=== PATIENT | male | born 1955 | race Caucasian/White ===

== ENCOUNTER 2020-01-29 11:05 | Emergency (ER) | payer BC, SELFPAY ==
[2020-01-29 11:20] VITALS: BP 113/85; PULSE 69; RESP 20; TEMP 36.7; O2SAT 100
--- NOTE | 2020-01-29 11:28 | ED.EAR ---
HPI - Ear Problem General Chief complaint: Ear Stated complaint: R/ear pain Time Seen by Provider: 01/29/20 11:08 Source: patient Mode of arrival: ambulatory Limitations: no limitations History of Present Illness HPI Narrative: 64-year-old male presents to urgent care with complaints of decreased hearing and clogged sensation to his right ear for the past week. Patient reports that symptoms worsen this morning. Patient denies fever, bites, chills, nausea vomiting, diarrhea, ear drainage or ear pain. MD Complaint: decreased hearing and other (clogged sensation) Location: right ear Severity: mild Exacerbating factors: nothing Discharge from ear: Reports no Related Data Allergies Allergy/AdvReac Type Severity Reaction Status Date / Time oxycodone Allergy Hallucinati Verified 01/29/20 11:19 ng Review of Systems Review of Systems: All systems reviewed & are unremarkable except as noted in HPI and below Constitutional: Constitutional: Denies chills, Denies fatigue, Denies fever(s) and Denies weakness ENT: Denies dysphagia, Denies dizziness, Denies epistaxis, Denies nasal congestion and Denies sore throat Comments: Right ear clogged and decreased hearing Respiratory: Respiratory: Denies cough, Denies dyspnea and Denies wheezing Gastrointestinal: Gastrointestinal: Denies abdominal pain, Denies diarrhea, Denies nausea and Denies vomiting Integumentary/Breasts: Skin/Breast: Denies rash Neurologic: Denies vertigo, Denies dizziness and Denies syncope [facility] Social History Social History (Updated 01/29/20 @ 11:30 by Meagan Riley, MARBIN) Smoking status: Never smoker Exam Const: General: healthy appearing, no acute distress and alert; No ill appearing Orientation/consciousness: patient oriented x3 and No confusion HENMT: Head: normal to inspection Ears: external ears normal and TM abnormal obstructed by cerumen on the right General nose exam: Normal nares present, no nasal discharge noted and no epistaxis Face and sinus: no sinus tenderness Mouth: No lip normal Throat: uvula midline Other: Left TM within normal range. Moderate cerumen impaction noted to right ear Eyes: Pupils: Equal, round and reactive pupils present Neck: Neck: normal visual inspection and no lymphadenopathy Resp: Effort & Inspection: normal respiratory effort and not labored Auscultation: clear to auscultation bilaterally Cardio: Rate: regular rate, not bradycardic and not tachycardic Rhythm: regular rhythm Heart sounds: no murmurs Skin: General skin exam: normal color Rashes: no rashes Neuro: General: moves all extremities and no meningeal signs Extrem: General: normal to inspection Psych: Appearance: grossly normal Mental Status: mental status grossly normal Affect: normal affect and Anxious affect present Attitude: cooperative Thought content: Yes Normal thought content present Course Vital Signs Vital signs: Vital Signs Temperature 36.7 C 01/29/20 11:20 Pulse Rate 69 01/29/20 11:20 Respiratory Rate 01/29/20 11:20 Blood Pressure 113/85 01/29/20 11:20 Pulse Oximetry 100 01/29/20 11:20 Temperature 36.7 C 01/29/20 11:20 Pulse Rate 01/29/20 11:20 Respiratory Rate 01/29/20 11:20 Blood Pressure 113/85 01/29/20 11:20 Pulse Oximetry 100 01/29/20 11:20 Procedures Ear Wax Removal Right Ear: Ear Wax Removal Date: 01/29/20 Ear Wax Removal Time: 11:37 Results: Re-examined: cerumen removed completely TM Examination: TM(s) intact, normal appearance Ear Canal Exam: other (mild erythema noted to right ear canal) Patient Tolerated Procedure: well Complications: no problems Medical Decision Making MDM Narrative Medical decision making narrative: Cerumen was removed using irrigation --please see procedure note. Patient agrees to use [id number] Debrox drops as needed. Patient agrees to follow-up with primary care provider if symptoms w
== END 2020-01-29 11:55 | disposition home or self-care (01) ==
PROVIDERS: Emergency Provider Nurse Practitioner Family; PCP Internal Medicine
DX: H61.21 Impacted cerumen, right ear (principal)
CPT/HCPCS: 69209; 99213; G0463

== ENCOUNTER 2024-08-29 15:24 | Emergency (ER) | payer MEDICARE, BC, SELFPAY ==
[2024-08-29] VITALS (7 sets, daily range): BP systolic 125–150; BP diastolic 77–95; PULSE 68; RESP 16–20; TEMP 36.1–36.8; O2SAT 96–100
--- NOTE | ~2024-08-29 | CT_ITS ---
EXAMINATION: CT abdomen pelvis w con DATE: 08/29/2024 19:45 INDICATION: Right lower quadrant abdominal pain. TECHNIQUE: Computed tomography (CT) of the abdomen and pelvis was performed with 100 mL Omnipaque 350 intravenous contrast. Automated exposure control and iterative reconstruction technique were employe d. The dose-length product was 583.33 mGy-cm. COMPARISON: None. FINDINGS: The visualized portions of the lung bases demonstrate mild atelectasis. There is a left pos terior diaphragmatic hernia containing fat. No pleural effusion. The heart size is normal. No pericar dial effusion. There is a 4 mm cyst in the liver. The gallbladder, spleen, pancreas, adrenal glands, and right kidney are normal. There is an 11 mm cyst in left kidney. There is a large volume of stool in the colon. The appendix is normal. There is dilated distal ileum with a large volume of stool. The prostate is mildly enlarged. There is a right inguinal hernia containing fat. The appendix is normal . There are no pathologically enlarged lymph nodes. There is no free intraperitoneal fluid. There is an umbilical hernia containing fat. There is severe lumbar spondylosis. There is mild thoracic spondy losis. There is mild chronic anterior wedging of T11 and T12 vertebral bodies. IMPRESSION: 1. Dilated distal ileum, likely adynamic ileus versus distal impaction. 2. Right inguinal hernia containing fat. 3. Umbilical hernia containing fat. Reviewed, dictated and finalized at location A. [facility]
--- OUTSIDE RECORDS SUMMARY | 2024-08-29 15:27 | XMS_ITS | Clinical Summary ---
Author Organization [facility] Address [facility] [place] [address] Care Team Providers Care Road Machinery Inspector Name Role Phone Gucci Nixon MD Primary Care Provider [phone] Gucci Nixon MD Unavailable [phone] Allergies Active Allergy Reactions Criticality Noted Date Comments Oxycodone Mental status changes High 02/17/2018 Confusion, Anxiety Medications acetaminophen (TYLENOL) 500 mg tabletIndication s:Pain Take 2 tablets (1,000 mg total) by mouth every 6 (six) hours as needed for pain Active tadalafiL (Cialis) 20 mg tabletIndication s:Erectile Dysfunction Take 1 tablet (20 mg total) by mouth daily as needed for erectile dysfunction 10 tablet 1 1 Active omeprazole (PriLOSEC) 20 mg capsule TAKE 1 CAPSULE(20 MG) BY MOUTH DAILY 90 capsule 4 Active scopolamine 1 mg over 3 days patch [address] 1 patch on the skin every third day as needed (nausea) 4 patch 2 4 Active Additional Information Patient not taking.Reported on 12/24/2023 rosuvastatin (CRESTOR) 10 mg tablet Take 1 tablet (10 mg total) by mouth daily 30 tablet 11 4 12/24/19 25 Active zolpidem (AMBIEN) 5 mg tabletIndication s:Sleep-Onset Insomnia Take 1 tablet (5 mg total) by mouth nightly as needed for sleep 30 tablet 2 4 12/25/19 25 Active etodolac (LODINE) 400 mg tablet TAKE 1 TABLET BY MOUTH DAILY 90 tablet 1 4 Active Active Problems Problem Noted Date Diagnosed Date Nail fungus 07/30/2023 Assessment & Plan (07/30/2023 1:06 PM PORCELAIN ENAMEL INSTALLER): Would advise continuing topical anti-fungal Return to Derm Inguinal hernia 03/29/2020 Overview (03/29/2020): Added automatically from request for surgery [id number] Disorder of rotator cuff 03/23/2020 Ganglion cyst 03/23/2020 Resolved Problems Problem Noted Date Diagnosed Date Resolved Date Encounter for screening colonoscopy 09/29/2020 07/30/2023 Overview (09/29/2020): Added automatically from request for surgery [id number] Sinusitis 03/23/2020 07/30/2023 Encounters Date Type Department Care Team Description 08/03/2024 1:00 PM PORCELAIN ENAMEL INSTALLER Office Visit [facility] [address] [place] [address] [address] [place] [id number] Ricardo Morales MD Basal cell carcinoma (BCC) of left oriental orthodox region (Primary Dx); Nail disorder; Lentigo; Seborrheic keratosis; History of nonmelanoma skin cancer from Last 3 Months Immunizations Immunization Administration Dates Next Due Influenza, Quadrivalent, Yessi l Culture-based MDCK, Preservative Free, Antibiotic Free, Intramuscular 03/22/2022 Influenza, Quadrivalent, Hig h Dose, Preservative Free, Intrr 04/20/2023 Influenza, Quadrivalent, Rec ombinant, Egg Free, Preservative Free, Intramuscular 04/07/2018 Influenza, Quadrivalent, Spl it, Preservative Free, Intramuscular 03/29/2020,04/06/2019,04/21/2015 Influenza, Trivalent, High D ose, Split, Preservative Free, Intramuscular 04/11/2024 Influenza, Trivalent, IM (MDV) 04/09/2021,2013,06/09/2013 Influenza, Trivalent, Preser vative Free, Intramuscular 06/10/2013 Maria R (J&J) SARS-CoV-2 Vaccination 09/09/2020 Moderna SARS-CoV-2 Monovalen t Vaccination (12+ YRS) 05/14/2021 Pneumococcal Conjugate Pcv20 09/26/2022 ZOSTER Recombinant 03/20/2019,01/17/2019, 019 Surgical History Surgery Date Site/Laterality Comments LUMBAR SPINE SURGERY ROTATOR CUFF REPAIR MOHS SURGERY COLONOSCOPY Medical History Medical History Date Comments Glaucoma Depression Anxiety GERD (gastroesophageal reflux disease) Family History Medical History Relation Name Comments Cancer Mother Anesthesia problems Neg Hx Relation Name Status Comments Mother Social History Tobacco Use Types Packs/Day Years Used Date Smoking Tobacco: Former Cigarettes 0.5 14 1 980 - 1993 Smokeless Tobacco: Never Tobacco Cessation:Counseling Given: Not Answered Alcohol Use Standard Drinks/Week Comments Yes 10 (1 standard drink = 0.6 oz pu re alcohol) AUDIT-C Answer Date Recorded Q1: How often do you have a drink containing alc ohol? 2-3 times a week 02/16/2021 Q2: How many drinks containi ng alcohol do you have on a typical day when you are drinking? 1 or 2 02/16/2021 Q3: How often do you have si x or more drinks on one occasion? Never 02/16/2021 PHQ-2 Answer Date Recorded PHQ-2 Total Score (If total score is 3 or more points, staff should administer the PHQ-9) 0 12/17/2023 Sex and Gender Information Value Date Recorded Sex Assigned at Not on file Legal Sex Male 6:22 PM PORCELAIN ENAMEL INSTALLER Gender Identity Not on file Sexual Orientation Straight 06/23/2020 9: 19 PM PORCELAIN ENAMEL INSTALLER Occupation Industry Job Start Date Job End Date retired Not on file Not on file Not on file Obstetrics History Last Filed Vital Signs Vital Sign Reading Time Taken Comments Blood Pressure 123/66 12/24/2023 2:39 PM CDT Pulse 65 12/24/2023 2:39 PM CDT Temperature 36.5 C (97.7 F) 02/16/2021 8:33 AM CDT Respiratory Rate 17 02/16/2021 8:53 AM CDT Oxygen Saturation 98% 07/30/2023 12:47 PM PORCELAIN ENAMEL INSTALLER Inhaled Oxygen Concentration - - Weight 86.2 kg (190 lb) 12/24/2023 2:39 PM CDT Height 177.8 cm (5' 10 ) 12/24/2023 2:39 PM CDT Body Mass Index 27.26 12/24/2023 2:39 PM CDT Plan of Treatment Health Maintenance Due Date Last Done Comments DTaP/Tdap/Td Vaccine (1 - Tdap) 1968 Abdominal Aortic Aneurysm (A AA) Screen 2022 09/03/2018 Covid-19 Vaccine (6 - 2023-2 5 season) 2024 03/23/2024, 04/01/2023, 03/27/2022, Additional history exists Depression Screening 12/23/2024 12/24/2023 Fall Risk Assessment 12/23/2024 12/24/2023, 02/17/20 Well Visit 65+ 12/23/2024 12/24/2023, 09/13/2020 Prostate Cancer Screening-PSA 12/23/2025, 09/19/2021, 09/13/2020 Colon Cancer Screening-Colonoscopy 02/16/2031 02/16/2021 Zoster Vaccine Completed 03/20/2019, 01/05, 01/14/2019 Colon Cancer Screening-CT Colonography Discontinued 02/16/2021 Colon Cancer Screening-DNA Stool Discontinued 02/17/20 Colon Cancer Screening-FIT Discontinued 02/16/2021 Colon Cancer Screening-Sigmoidoscopy Discontinued 02/16/2021 Pneumococcal vaccine 65+ Completed 09/26/2022, 10/2022 Hepatitis B Screening Completed 12/24/2023 Hepatitis C Screening Completed 12/24/2023 Influenza Vaccine Completed 04/11/2024, , 03/22/2022, Additional history exists Medical Devices Implanted Type Area Endoscopy Registered Nurse Device Identifier Shelf Expiration Date Model / Serial / Lot [employer]/C R Bard [id number] Bard 3dmax 6.2x4.1in Monofilament Seal Edge Lightweight Pore Knit Latex Free - Sn/A - [id number] Implanted:Qty: 1 on 04/27/2020 by Alethea Isabel MD at [facility] Mesh Left: Other - see comments [employer] Bard 08/04/2024 [id number] / N/A / Description:Left inguinal Procedures Procedure Name Priority Date/Time Associated Diagnosis Comments HEPATITIS C ANTIBODY Routine 12/24/2023 3:35 PM CDT Mixed hyperlipidemia Routine general medical examination at a health care facility Vitamin D deficiency Encounter for hepatitis C screening test for low risk patient Need for hepatitis B screening test PSA SCREEN Routine 12/24/2023 3:35 PM CDT Mixed hyperlipidemia Routine general medical examination at a [facility] care facility Vitamin D deficiency Encounter for hepatitis C screening test for low risk patient Need for hepatitis B screening test COLONOSCOPY 02/16/2021 8:05 AM CDT from Last 3 Months or Most Recently Relevant to Health Maintenance Results * PSA screen (12/24/2023 3:35 PM CDT) Pathologist [facility] PSA 3.0 0.0 - 4.0 ng/mL [facility] - 01 Comment: [place] ECLIA methodology. According to the [employer], Serum PSA should decrease and remain at undetectable levels after radical prostatectomy. The AUA defines biochemical recurrence as an initial PSA value 0.2 ng/mL or greater followed by a subsequent confirmatory PSA value 0.2 ng/mL or greater. Values obtained with different assay methods or kits cannot be used interchangeably. Results cannot be interpreted as absolute evidence of the presence or absence of malignant disease. Blood 12/24/2023 3:35 PM CDT 12/24/2023 Narrative [facility] - 12/25/2023 12:11 PM CDT Performed at: [address] [place] [id number] [place]: Ming Julian PhD, Phone: [phone] us Gucci Nixon MD LAB BLOOD ORDERABLES Final [facility] - 01 * Hepatitis C antibody Blood (12/24/2023 3:35 PM CDT) Pathologist [facility] Hep C Ab Non Reactive Non Reactive [facility] - 01 Comment: HCV antibody alone does not differentiate between previously resolved infection and active infection. Equivocal and Reactive HCV antibody results should be followed up with an HCV RNA test to support the diagnosis of active HCV infection. Blood 12/24/2023 3:35 PM CDT 12/24/2023 Narrative [facility] - 12/25/2023 12:11 PM CDT Performed at: - [address] [id number] [place]: Ming Julian PhD, Phone: [phone] us Gucci Nixon MD LAB MICROBIOLOGY - GENERAL OR DERABLES Final Result [facility] - 01 * COLONOSCOPY (02/16/2021 8:05 AM CDT) Anatomical Region Laterality Modality Other Narrative Procedure Note Latonya Gaona MD - 02/16/2021 8:05 AM CDT [facility] Patient Name: Robb Hughes Procedure Date: 02/16/2021 8:05 AM Date of : 1955 Admit Type: Outpatient Age: 65 Gender: Male Attending MD: Latonya Gaona M.D. Room: [facility] ENDOSCOPY ROOM 8 Note Status: Finalized Procedure: Colonoscopy Indications: Screening in patient at increased risk: Colorectal cancer in mother 60 or older, High risk coloncancer surveillance: Personal history of colonic polyps,Last colonoscopy 5 years ago Referring MD: Gucci Nixon M.D. Providers: Latonya Gaona M.D. Medicines: Monitored Anesthesia Care Complications: No immediate complications. Estimated Blood Loss: Minimal. Procedure: Pre-Anesthesia Assessment: - Monitored anesthesia care under the supervisionof a MANAGER OF TAX was determined to be medically necessary forthis procedure based on review of the patient's medical history, medications, and prior anesthesiahistory. - Immediately prior to administration ofmedications, the patient was re-assessed for adequacy to receive sedatives. - The risks and benefits of the procedure and the sedation options and risks were discussed with the patient. All questions were answered and informed consent was obtained. The benefits, risks and alternatives of theprocedure and sedation were discussed and informed consentwas obtained. All questions were answered. Please referto the signed informed consent document in the medical record. The scope was passed under direct vision.The [id number] endoscope was introduced through the anus and advanced to the cecum, identified by appendiceal orifice and ileocecal valve. The colonoscopy was performed without difficulty. The patient tolerated the procedure well. The bowel preparation used was GoLYTELY via split dose instruction. The quality of the bowel preparationwas excellent. Bowel prep was administered using asplit dose. Findings: A 3 mm polyp was found in the ascending colon. The polyp was sessile. The polyp was removed with a jumbo cold forceps. Resection andretrieval were complete. Non-bleeding internal hemorrhoids were found during retroflexion. The hemorrhoids were mild. The exam was otherwise without abnormality. Impression: - One 3 mm polyp in the ascending colon, removedwith a jumbo cold forceps. Resected and retrieved. - Non-bleeding internal hemorrhoids. - The examination was otherwise normal. Recommendation: - Discharge patient to home (ambulatory). - Repeat colonoscopy in 5 years for surveillance. - Return to referring physician. - A polyp or polyps were removed during your colonoscopy today. After the pathology result ofthe polyp(s) is reviewed, the doctor who performedyour colonoscopy will recommend follow-up colonoscopy to you based on current guidelines by gastroenterology societies: - If only small hyperplastic polyps from the rectumor sigmoid were removed, repeat the colonoscopy in 10 years. - If 1 or 2 polyps less than 1 cm in size are adenomas, repeat the colonoscopy in 5 years. - If 3 or more polyps are adenomas, repeat the colonoscopy in 3 years. - If there are 10 or more adenomas, repeat the colonoscopy in 1 year. - If any polyp is 10 mm or greater in size, has villous histology or high grade dysplasia,repeat the colonoscopy in 3 years. - If a polyp greater than 2 cm was removed with a piecemeal technique, repeat the colonoscopy in 6 months to be certain that there is no residualpolyp. - Sessile serrated polyps are treated like adenomas for surveillance purposes. Electronically signed by Latonya Gaona MD Latonya Gaona M.D. 02/16/2021 8:28:58 AM . Number of Addenda: 0 Note Initiated On: 02/16/2021 8:05 AM Recognized by the [employer] for promoting quality in endoscopy Latonya Gaona MD ENDOSCOPY PROCEDURES [place] Result from Last 3 Months or Most Recently Relevant to Health Maintenance Insurance iCrossing [facility] FEDERAL MEDICARE MEDICARE [facility] FEDERAL MEDICARE [facility] Advance Directives For more information, please contact: [phone] * Full Code (Latest Code Status on File) Date Activated Date Inactivated Comments 02/16/2021 7:50 AM 02/16/2021 1:12 PM * Full Code Date Activated Date Inactivated Comments 02/16/2021 7:23 AM 02/16/2021 7:50 AM * Full Code Date Activated Date Inactivated Comments 04/27/2020 10:06 AM 04/27/2020 3:[address] Machinery Inspector Relationship Specialty Start Date End Date Gucci Nixon MD [address] [employer] [address] [address] PCP - General 11/18/17 Gucci Nixon MD [address] [employer] [facility] [address] [place] [address] Referring Physician Internal Medicine 10/30/18
--- OUTSIDE RECORDS SUMMARY | 2024-08-29 15:27 | XMS_ITS | Continuity of Care Document ---
Author Organization [facility] Address [address] [place] [address] [place] [address] Phone Care Team Providers Care Furniture Rental Consultant Name Role Phone Donavan Camara DO Unavailable Unavailable Advance Directives Directive Yes / No Effective Date File Name No Information Encounters Encounter Description Practice Location Reason(s) For Visit Diagnoses Date Provider Providers Copied on Encounter [facility], [address], [place], [place], [id number], [place] tel:[phone] [facility] [place][note 2] No Information Jax Galvez. [address] [facility], [place], [address], [place]. tel:[phone] Referring Provider: Yang Mary, [address] [facility] [address], [place], [address]. tel:[phone] Family History Family Member Type Diagnosis Age At Onset No Information Payers Payer name Insurance type Covered libertarian ID Authoriza tion(s) No Information Social History Type Description Quantity Date Captured Comments Sex Male Smoking Status No Information Chief Complaint And Reason For Visit No Information Reason For Referral Reason For Referral No Information History Of Present Illness Encounter Date Complaint History Of Prese nt Illness No Information Functional Status Date Functional Assessmen t No Information Instructions Date Instruction Additional Infor mation No Information Assessments Type Assessment Date No Information Patient Care Teams Name Effective Dates (start - stop) Status Members No Information
--- OUTSIDE RECORDS SUMMARY | 2024-08-29 15:27 | XMS_ITS | Patient Health Record ---
Author Organization [facility]ess[facility] Billing Info Address [address] [place] [address] Support Name Relationship Address Phone Robb Hughes Guarantor Unknown Allergies Allergen (clinical drug ingredient) Drug/Non Drug Allergy documented on EMR Reaction Allergy Type Onset Date Status oxycodone Oxycodone HCl Unknown Drug Allergy Act vladimir Reason For Referral No Information Medications Medication SIG (Take, Route, Frequency, Duration) Notes Start Date End Date Status Azelastine HCl 0.1 % 1 puff in each nost ril Nasally Twice a day for 5 day(s) Active DiphenhydrAMINE HCl 50 MG 1 capsule as n eeded Orally every 8 hrs for 7 day(s) 08/07/2018 Active Tessalon Perles 100 MG 1 capsule as need ed Orally Three times a day for 7 day(s) 08/07/2018 Active Pseudoephedrine HCl 30 MG 1 tablet as ne eded Orally Q8H for 3 day(s) 08/07/2018 Active Xyzal Active Benadryl Active MethylPREDNISolone 4 MG as directed Orally Active Fluticasone Propionate 0.05 % 1 applicat ion to affected area Externally Once a day for 14 day(s) Active Social History Tobacco Status: Question Answer Notes Patient is a non tobacco user Plan Of Treatment No Information Insurance Providers Payer Name Payer Address Payer Phone Subscriber Number Group Number Insured Name Patient Relationship to Insured Coverage Start Date Coverage End Date [facility] FEDERAL CLAIMS [address] [place] [id number] Robb Lopez Self - patient is the insured 9 Medical (General) History Surgical History Surgery Date(Month/Year) shoulder surgery, R 2013 cholecystectomy 1999 Child [id number]
--- OUTSIDE RECORDS SUMMARY | 2024-08-29 15:27 | XMS_ITS | Data Portability ---
Author Organization [place] - [facility] [email or web address], Main Office Address [address] [place] [address] Care Team Providers Care Linen Grader Name Role Phone USHA VERA Primary Care Provider USHA VERA Referring Provider [phone] Assessment Encounter Date Assessment Date Assessment LastModified by Organization Details LastModified Time 01/03/2023 01/03/2023 HPI: 67-year-old male came in today for evaluation of his right long trigger finger. Finger has been catching for about 3 or 4 months. He has not recall any injury or trauma that started this. He also has pain and points at the A1 thomas of the long finger where he feels quite a bit of soreness in the hand. Physical exam: Patient does have full extension long finger. He has active triggering with full flexion which is painful. He has moderate tenderness over the A1 thomas of the long finger. He has Dupuytren's contractures of the 4th as well as the 3rd flexor tendons noted. There is no flexion contracture of the ring finger. No numbness or tingling in the hand. 2+ radial pulse. After ChloraPrep used on skin 5 mg Kenalog and 1 cc of 0.5% ropivacaine was injected into the A1 thomas right long finger. Afterwards patient noted good relief of symptoms. He is able to trigger the finger with minimal discomfort. Impression: 67-year-old male who has a right long trigger finger. I discussed the etiology of this. I discussed treatment options including cortisone injections, typically these are limited to more than 2 could cause softening and tendon tendon rupture. I talked about surgical procedure as well with him so he is aware of it. Hopefully the injection will help him today. He will call if it does not improve his symptoms otherwise we will see him back as needed. 20 minutes was spent in treatment patient more than of this in [id number] conversation Not available 01/03/2023 13:31:54 06/06/2023 06/06/2023 HPI: Patient returns. His right long trigger finger has recurred. He had a cortisone injection 01/03 this year. shot helped up until 1 month ago when his triggering recurred. He does not wish to have another injection and wishes to proceed with surgery at this point. Physical exam: Patient has full extension of the right long finger. He has active triggering with range of motion. Moderate tenderness over the A1 thomas. A little swelling in the finger wrist or hands. 2+ radial pulse. No numbness or tingling in the fingers. Impression: Patient has a right long trigger finger. At this point he would like to proceed with surgery. Surgical procedure as well as the risks and complications were discussed including infection and nerve injury. We will set this up in the near future. Not available 06/06/2023 09:13:54 07/04/2023 07/04/2023 HPI: Patient returns. He is now 15 days out from his right long finger A1 thomas release. Overall he is doing fine. Physical exam: Patient's incision is well healed. Stitches removed. He has full extension of the finger and full flexion. He has no triggering. Mild tenderness over the incision. Impression: Patient doing very well 15 days out from right long finger A1 thomas release. This point he can increase activities as tolerated. See him back as needed. Not available 07/04/2023 11:10:59 Plan of Treatment Reminders Order Date Submit Date Provider Last Modified By Organization Details Last Modified Time Details Appointments None record ed. Lab None record ed. Referral None record ed. Procedures None record ed. Surgeries None record ed. Imaging XR, hand 023 01/04/20 23 [email or web address], [facility], [place], [address], 3 12:20:02 Medication Orders None record ed. Patient TargetsNo targets recorded. Patient InstructionsNo instructions recorded. Reason for Referral None Reported. Results Created Date Observation Date Name Description Value Unit Range Abnormal Flag Note LastModifiedBy Organization Detail LastModifiedTime 01/04/20 23 XR, hand No observ ation record ed. [facility] [address], [place], [address], 01/03/2023 13:29:46 Result Notes None recorded. Problems Name Problem SNOMED Code Status Onset Date Resolution Date Notes Provider Name and Address Organization Details Recorded Time Shoulder joint pain 511642291 Active Not Available [facility] 3 06:13:59 Sinusitis 38630518 Active Not Available [facility] 3 06:13:59 Disorder of rotator cuff 578707033 Active Not Available [facility] 3 06:13:59 Epidermoid cyst of skin 139512633 Active Not Available [facility] 3 06:13:59 Shoulder pain 56630331 Active Not Available [facility] 3 06:13:59 Pain of left hand 8408681027529 03 Active 2022 Madie Larry RMA null, [place] [facility] 3 11:34:38 Pain in right hand 4203843616227 09 Active 2022 Madie Larry RMA null, [place] [facility] 3 08:58:40 Trigger finger of right hand 1572485781322 9101 Active 2022 Madie Larry RMA null, [place] [facility] 3 10:59:03 Problem Notes None recorded. Procedures Surgical History Date Name Laterality Status Provider Name and Address Organization Details Recorded Time Shoulder completed Madie Larry, RMA [place] [facility] 01/03/2023 11:33:52 Imaging Results Imaging Date Name Status LastModified by Organiz ation Details LastModified Time 01/03/2023 XR, hand completed [facility] [address], [place], [address], 01/03/2023 13:29:46 Procedure Notes None recorded. Medical Equipment None Reported. Allergies Allergen ID Allergen Name Allergen Category Reaction Reaction Severity Criticality Documentation Date Start Date Code Code System Note Provider Name and Address Organization Details Recorded Time 19464 prochlorp erazine medicatio n Not available Not available Not available 09/05/2022 8704 RxNorm Not Available [facility] 3 06:18:39 48239 oxycodone medicatio n Not available Not available Not available 09/05/2022 7804 RxNorm Not Available [facility] 3 06:18:39 Medications Name Sig Start Date Stop Date Status Note LastModified by Organization Details LastModified Time cyclobenzap rine 10 mg tablet 01/01 completed Not Available Not Available Not Available amoxicillin 500 mg capsule Take 1 capsule 3 times a day by oral route for 10 days. active Not Available Not Available No t Available prednisone 10 mg tablet Take by oral route. active Not Available Not Available No t Available paroxetine 10 mg tablet active Not Available Not Available Not Available cefuroxime axetil 250 mg tablet 01/01 completed Not Available Not Available Not Available tizanidine 2 mg tablet 01/01 completed Not Available Not Available Not Available etodolac 200 mg capsule active Not Available Not Available Not Available trazodone 50 mg tablet active Not Available Not Available Not Available azithromyci n 250 mg tablet TAKE 2 TABLETS (500 MG) BY ORAL ROUTE ONCE DAILY FOR 1 DAY THEN 1 TABLET (250 MG) BY ORAL ROUTE ONCE DAILY FOR 4 DAYS 01/01 completed Not Available Not Available Not Available fluconazole 150 mg tablet 01/01 completed Not Available Not Available Not Available Doc-Q-Lace 100 mg capsule TK ONE C PO BID active Not Available Not Available No t Available clobetasol 0.05 % topical cream APPLY TO THUMB TWICE DAILY 07/04 completed Not Available Not Available Not Available acetaminoph en 300 mg-codeine 30 mg tablet active Not Available Not Available Not Available omeprazole 40 mg capsule,del ayed release Take 1 capsule every day by oral route for 30 days. active Not Available Not Available No t Available tramadol 50 mg tablet TAKE 1 TABLET BY MOUTH EVERY 4 HOURS NEEDED 07/04 completed Not Available Not Available Not Available acyclovir 800 mg tablet active Not Available Not Available Not Available ciclopirox 8 % topical solution APPLY OVER NAIL AND SURROUNDI NG SKINDAILY OVER PREVIOUS COAT FOR 7 DAYS. REMOVE WITH ALCOHOL AND CONTINUE CYCLE 07/04 completed Not Available Not Available Not Available oxycodone-a cetaminophe n 5 mg-325 mg tablet active Not Available Not Available No t Available triamcinolo ne acetonide 0.025 % topical cream 01/01 completed Not Available Not Available Not Available Oxistat 1 % lotion APPLY TO THE AFFECTED AND SURROUNDI NG AREAS OF SKIN TOPICALLY ONCE DAILY 01/01 completed Not Available Not Available Not Available benzonatate 100 mg capsule 01/01 completed Not Available Not Available Not Available cephalexin 500 mg capsule TAKE 1 CAPSULE BY MOUTH FOUR TIMES DAILY 07/04 completed Not Available Not Available Not Available tacrolimus 0.1 % topical ointment APPLY TO GROIN TWICE DAILY 07/04 completed Not Available Not Available Not Available nystatin 100,000 unit/gram topical cream APPLY TO THE AFFECTED AREA(S) BY TOPICAL ROUTE 2 TIMES PER DAY 01/01 completed Not Available Not Available Not Available omeprazole 20 mg capsule,del ayed release 07/04 completed Not Available Not Available Not Available etodolac 400 mg tablet TAKE 1 TABLET BY MOUTH DAILY 07/04 completed Not Available Not Available Not Available montelukast 10 mg tablet Take 1 tablet every day by oral route. active Not Available Not Available No t Available zolpidem 5 mg tablet 07/04 completed Not Available Not Available Not Available Transderm-S copying machine repairer 1 mg over 3 days transdermal patch 01/01 completed Not Available Not Available Not Available azelastine 137 mcg (0.1 %) nasal spray 01/01 completed Not Available Not Available Not Available methylpredn isolone 4 mg tablets in a dose pack 01/01 completed Not Available Not Available Not Available fluticasone propionate 50 mcg/actuati on nasal spray,suspe nsion Inhale 2 sprays every day by intranasa l route. 01/01 completed Not Available Not Available Not Available Cialis 20 mg tablet active Not Available Not Available No t Available Suprep Bowel Prep Kit 17.5 gram-3.13 gram-1.6 gram oral solution 05/06 completed Not Available Not Available Not Available Fluzone Quad 2015-17(PF) 60 mcg(15 mcgx4)/0.5 mL intramuscul ar syringe DIRE 01/01 completed Not Available Not Available Not Available Fluzone Quad (PF) 60 mcg(15 mcgx4)/0.5 mL intramuscul ar syringe 01/01 completed Not Available Not Available Not Available Shingrix (PF) 50 mcg/0.5 mL intramuscul ar suspension, kit 01/01 completed Not Available Not Available Not Available Flublok Quad (PF) 180 mcg (45 mcg x 4)/0.5 mL IM syringe 01/01 completed Not Available Not Available Not Available Fluzone Quad (PF) 60 mcg (15 mcg x 4)/0.5 mL IM syringe IMMUNIZAT ION 01/01 completed Not Available Not Available Not Available Vitals Date Recorded Body height Body mass index (BMI) Body weight Provider Name and Address Organization Details Last Updated DateTime 01/03/2023 172.72 cm 28.7 kg/m2 60790.96 g Madie Larry [facility] [email or web address] 01/03/2023 12:23:49 Date Recorded Body height Provider Name an d Address Organization Details Last Updated DateTime 06/06/2023 172.72 cm Madie Larry [place] [email or web address] 06/06/2023 08:57:54 Date Recorded Body height Provider Name an d Address Organization Details Last Updated DateTime 07/04/2023 172.72 cm Madie Larry [facility] [email or web address] 07/04/2023 10:56:51 Social History Question Answer Notes LastModified by Organizat ion Details LastModified Time What Is Your Occupation? Retired [id number] Information not available 09/05/2022 Sex: Unknown Functional Status None recorded. Mental Status None recorded. Family History Nothing Reported. Medical History No medical history recorded. Immunizations Vaccine Type Date Status Note Provider Nam e and Address Organization Details Recorded Time Influenza, split virus, trivalent, preservative 3 completed Not Available [facility] 09/05/2022 06:18:24 Influenza, split virus, trivalent, preservative 4 completed Not Available [facility] 09/05/2022 06:18:24 Influenza, split virus, quadrivalent, PF 5 completed Not Available [facility] 09/05/2022 06:18:24 Influenza, split virus, trivalent, PF 3 completed Not Available [facility] 09/05/2022 06:18:24 Past Encounters Encounter ID Performer Location Encounter Start Date Encounter Closed Date Diagnosis/Indication Diagnosis SNOMED-CT Code Diagnosis ICD10 Code Diagnosis Note [id number] ROSA Avalos [facility] [address] [address] 01/03/2023 11:11:54 01/03/2023 14:08:14 Pain of left hand 5736523449 96109 M79.610 [id number] ROSA Avalos [facility] [address] [address] 06/06/2023 08:55:23 06/06/2023 09:17:33 Pain in right hand 8169005092 16605 M79.847 [id number] ROSA Avalos [facility] [address] [address] 07/04/2023 10:53:38 07/04/2023 11:49:34 Trigger finger of right hand 7920467239 6503179 M65.331 Health Concerns Section Related Observation LastModified by Organization Detai ls LastModified Time None Recorded Concern Status LastModified by Organization Details LastModified Time None Recorded Advance Directives Directive None Recorded Payers Encounter Date Sequence Insurance Name Policy Number Policy Hung Covered Member ID Hung Member ID Guarantor Name 01/03/2023 2 [place] 111 Robb Hughes [id number] Robb Hughes 01/03/2023 1 [place] Robb Hughes [id number] Robb Hughes 06/06/2023 2 [place] 111 Robb Hughes [id number] Robb Hughes 06/06/2023 1 [place] Robb Hughes [id number] 1 Robb Hughes 07/04/2023 2 [place] 111 Robb Hughes [id number] Robb Hughes 07/04/2023 1 [place] Robb Hughes [id number] 1 Robb Hughes
--- OUTSIDE RECORDS SUMMARY | 2024-08-29 15:27 | XMS_ITS | Referral Summary ---
Author Organization [facility] Address [facility] [place] [address] Care Team Providers Care Internal Consultant Name Role Phone Gucci Nixon MD Primary Care Provider [phone] Gucci Nixon MD Unavailable [phone] Encounters Date Type Department Care Team Description 08/03/2024 1:00 PM LEAD FRONT END DEVELOPER Office Visit [facility] Dermatology [address] [place] [address] [address] [place] [address] Ricardo Morales MD Basal cell carcinoma (BCC) of left gnosticism region (Primary Dx); Nail disorder; Lentigo; Seborrheic keratosis; History of nonmelanoma skin cancer from Last 3 Months Allergies Active Allergy Reactions Criticality Noted Date [...] 07/30/2023 Assessment & Plan (07/30/2023 1:06 PM LEAD FRONT END DEVELOPER): Would advise continuing topical anti-fungal Return to Derm Inguinal hernia 03/29/2020 Overview (03/29/2020): Added automatically from request for surgery [id number] Disorder of rotator cuff 03/23/2020 Ganglion cyst 03/23/2020 Resolved Problems Problem Noted Date Diagnosed Date Resolved Date Encounter for screening colonoscopy 09/29/2020 07/30/2023 Overview (09/29/2020): Added automatically from request for surgery [id number] Sinusitis 03/23/2020 07/30/2023 Immunizations Immunization Administration Dates Next Due Influenza, [...] Conjugate Pcv20 09/26/2022 ZOSTER Recombinant 03/20/2019,01/17/2019, 019 Social History Tobacco Use Types Packs/Day Years [...] on file Legal Sex Male 6:22 PM LEAD FRONT END DEVELOPER Gender Identity Not on file Sexual Orientation Straight 06/23/2020 9: 19 PM LEAD FRONT END DEVELOPER Occupation Industry Job Start Date Job End Date retired Not on file Not on file Not on file Last Filed Vital Signs Vital Sign Reading Time Taken Comments Blood Pressure 123/66 12/24/2023 2:39 PM CDT Pulse 65 12/24/2023 2:39 PM CDT Temperature 36.5 C (97.7 F) 02/16/2021 8:33 AM CDT Respiratory Rate 17 02/16/2021 8:53 AM CDT Oxygen Saturation 98% 07/30/2023 12:47 PM LEAD FRONT END DEVELOPER Inhaled Oxygen Concentration - - Weight 86.2 kg (190 lb) 12/24/2023 2:39 PM CDT Height 177.8 cm (5' 10 ) 12/24/2023 2:39 PM CDT Body Mass Index 27.26 12/24/2023 2:39 PM CDT Plan of Treatment Not on file Medical Devices Implanted Type Area Inventory Taker Device Identifier Shelf Expiration Date Model / Serial / Lot [employer]/C R Bard [id number] Bard 3dmax 6.2x4.1in Monofilament Seal Edge Lightweight Pore Knit Latex Free - Sn/A - [id number] Implanted:Qty: 1 on 04/27/2020 by Alethea Isabel MD at [facility] Medicine Mesh Left: Other - see comments [employer] 08/04/2024 [id number] / N/A / Description:Left inguinal Procedures Procedure [...] hyperlipidemia Routine general medical examination at a [facility] care facility Vitamin D deficiency Encounter for hepatitis C screening test for low risk patient Need for hepatitis B screening test COLONOSCOPY 02/16/2021 8:05 AM CDT from Last 3 Months or Most Recently Relevant to Health Maintenance Results * PSA screen (12/24/2023 3:35 PM CDT) PSA 3.0 0.0 - 4.0 ng/mL [facility] - 01 Comment: [place] ECLIA methodology. According to the [employer] [employer], Serum PSA should decrease and [...] - 12/25/2023 12:11 PM CDT Performed at: [facility] [id number] Dowel Inspector: Ming Julian PhD, Phone: [phone] us Gucci Nixon MD LAB BLOOD ORDERABLES Final Re sult Performing Organization Address City/[facility] [employer] Phone Number [facility] - 01 * Hepatitis C antibody Blood (12/24/2023 3:35 PM CDT) Hep C Ab Non Reactive Non Reactive [facility] - 01 Comment: HCV antibody alone does not differentiate between previously resolved infection and active infection. Equivocal and Reactive HCV antibody results should be followed up with an HCV RNA test to support the diagnosis of active HCV infection. Blood 12/24/2023 3:35 PM CDT 12/24/2023 Narrative [facility] - 12/25/2023 12:11 PM CDT Performed at: [address] [place] [id number] Dowel Inspector: Ming Julian PhD, Phone: [phone] Gucci Nixon MD LAB MICROBIOLOGY - GENERAL OR DERABLES Final Result Performing Organization Address [facility] [employer] Phone Number [facility] - 01 * COLONOSCOPY (02/16/2021 8:05 AM CDT) Anatomical Region Laterality Modality Other Narrative Procedure Note Latonya Gaona MD - 02/16/2021 8:05 AM CDT [facility] Patient Name: Robb Hughes Procedure Date: 02/16/2021 8:05 AM Date of : 1955 Admit Type: Outpatient Age: 65 Gender: Male Attending MD: Latonya Gaona M.D. Room: [facility] END[facility]COPY RO[facility] 8 Note Status: Finalized Procedure: [...] Monitored anesthesia care under the supervisionof a VIRTUAL REALITY SPECIALIST was determined to be medically necessary forthis [...] The scope was passed under direct vision.The [id number] endoscope was introduced through the anus and [...] On: 02/16/2021 8:05 AM Recognized by the [employer] for promoting quality in endoscopy us Latonya Gaona MD ENDOSCOPY PROCEDURES [place] Result from Last 3 Months or Most Recently Relevant to Health Maintenance Insurance [facility] [employer] [id number] [place] [address] MEDICARE MEDICARE [facility] FEDERAL MEDICARE [facility] FEDERAL Advance Directives For more information, please contact: [phone] * Full Code (Latest Code Status on File) Date Activated Date Inactivated Comments 02/16/2021 7:50 AM 02/16/2021 1:12 PM * Full Code Date Activated Date Inactivated Comments 02/16/2021 7:23 AM 02/16/2021 7:50 AM * Full Code Date Activated Date Inactivated Comments 04/27/2020 10:06 AM 04/27/2020 3:34 PM Care Teams Internal Consultant Relationship Specialty Start Date End Date Konzen, Gucci L., MD [address] [address] PCP - General 11/18/17 Gucci Nixon MD [address] [address] Referring Physician Internal Medicine 10/30/18
--- OUTSIDE RECORDS SUMMARY | 2024-08-29 18:28 | XMS_ITS | Clinical Summary ---
Author Organization [facility] Address formerly [facility] [place] [address] Care Team Providers Care Ammonia Refrigeration Technician Name Role Phone Gucci Nixon MD Primary Care Provider Gucci Nixon MD Unavailable [phone] Allergies Active Allergy Reactions Criticality Noted [...] 07/30/2023 Assessment & Plan (07/30/2023 1:06 PM SUPERVISOR DOG LICENSE OFFICER): Would advise continuing topical anti-fungal Return to Derm Inguinal hernia 03/29/2020 Overview (03/29/2020): Added automatically from request for surgery [id number] Disorder of rotator cuff 03/23/2020 Ganglion cyst 03/23/2020 Resolved Problems Problem Noted Date Diagnosed Date Resolved Date Encounter for screening colonoscopy 09/29/2020 07/30/2023 Overview (09/29/2020): Added automatically from request for surgery [id number] Sinusitis 03/23/2020 07/30/2023 Encounters Date Type Department Care Team Description 08/03/2024 1:00 PM SUPERVISOR DOG LICENSE OFFICER Office Visit [facility] Dermatology [address] [place] [address] [address] [place] [address] Ricardo Morales MD Basal cell carcinoma (BCC) of left sikhism region (Primary Dx); Nail disorder; Lentigo; Seborrheic [...] on file Legal Sex Male 6:22 PM SUPERVISOR DOG LICENSE OFFICER Gender Identity Not on file Sexual Orientation Straight 06/23/2020 9: 19 PM SUPERVISOR DOG LICENSE OFFICER Occupation Industry Job Start Date Job End [...] CDT Oxygen Saturation 98% 07/30/2023 12:47 PM SUPERVISOR DOG LICENSE OFFICER Inhaled Oxygen Concentration - - Weight 86.2 [...] history exists Medical Devices Implanted Type Area Senior Business Broker Device Identifier Shelf Expiration Date Model / Serial / Lot [employer]/C R Bard [id number] Bard 3dmax 6.2x4.1in Monofilament Seal Edge Lightweight Pore Knit Latex Free - Sn/A - [id number] Implanted:Qty: 1 on 04/27/2020 by Alethea Isabel MD at [facility] Mesh Left: Other - see comments [employer]/C R Bard 08/04/2024 [id number] / N/A / Description:Left inguinal Procedures Procedure [...] hyperlipidemia Routine general medical examination at a [facility] care facility Vitamin D deficiency Encounter for hepatitis C screening test for low risk patient Need for hepatitis B screening test COLONOSCOPY 02/16/2021 8:05 AM CDT from Last 3 Months or Most Recently Relevant to Health Maintenance Results * PSA screen (12/24/2023 3:35 PM CDT) Pathologist [facility] PSA 3.0 0.0 - 4.0 ng/mL [facility] - 01 Comment: [place]ett ECLIA methodology. According to the [place] [employer], Serum PSA should decrease and [...] - 12/25/2023 12:11 PM CDT Performed at: [address] [place] [id number] Dress Shoe Inspector: Ming Julian PhD, Phone: [phone] us Gucci Nixon MD LAB BLOOD ORDERABLES Final Re sult [facility] - 01 * Hepatitis C antibody Blood (12/24/2023 3:35 PM CDT) Pathologist [facility] Hep C Ab Non Reactive Non Reactive [facility] - 01 Comment: HCV antibody alone does not differentiate between previously resolved infection and active infection. Equivocal and Reactive HCV antibody results should be followed up with an HCV RNA test to support the diagnosis of active HCV infection. Blood 12/24/2023 3:35 PM CDT 12/24/2023 Narrative [facility] - 12/25/2023 12:11 PM CDT Performed at: - [address] [id number] Dress Shoe Inspector: Ming Julian PhD, Phone: [phone] us Gucci Nixon MD LAB MICROBIOLOGY - GENERAL OR DERABLES Final Result [facility] - 01 * COLONOSCOPY (02/16/2021 8:05 AM CDT) Anatomical Region Laterality Modality Other Narrative Procedure Note Latonya Gaona MD - 02/16/2021 8:05 AM CDT [facility] Patient Name: Robb Hughes Procedure Date: 02/16/2021 8:05 AM Date of : 1955 Admit Type: Outpatient Age: 65 Gender: Male Attending MD: Latonya Gaona M.D. Room: [facility] ENDOSCOPY ROOM 8 Note Status: Finalized Procedure: [...] Monitored anesthesia care under the supervisionof a CHILDREN'S MINISTER was determined to be medically necessary forthis [...] The scope was passed under direct vision.The [id number] endoscope was introduced through the anus [...] On: 02/16/2021 8:05 AM Recognized by the [place] [employer] Gastrointestinal Endoscopy for promoting quality in endoscopy Latonya Gaona MD ENDOSCOPY PROCEDURES [place] [facility] Result from Last 3 Months or Most Recently Relevant to Health Maintenance Insurance [employer] [facility] FEDERAL MEDICARE MEDICARE [facility] FEDERAL MEDICARE [facility] Advance Directives For more information, please contact: [phone] * Full Code (Latest Code Status on File) Date Activated Date Inactivated Comments 02/16/2021 7:50 AM 02/16/2021 1:12 PM * Full Code Date Activated Date Inactivated Comments 02/16/2021 7:23 AM 02/16/2021 7:50 AM * Full Code Date Activated Date Inactivated Comments 04/27/2020 10:06 AM 04/27/2020 3:34 PM Care Teams Ammonia Refrigeration Technician Relationship Specialty Start Date End Date Gucci Nixon MD [address] [address] PCP - General 11/18/17 Gucci Nixon MD [address] [facility] [address] [place] [address] Referring Physician Internal Medicine 10/30/18
--- OUTSIDE RECORDS SUMMARY | 2024-08-29 18:28 | XMS_ITS | Referral Summary ---
Author Organization [facility] Address [facility] [place] [address] Care Team Providers Care Creative Services Intern Name Role Phone Gucci Nixon MD Primary Care Provider [phone] Gucci Nixon MD Unavailable [phone] Encounters Date Type Department Care Team Description 08/03/2024 1:00 PM ACCOUNTS PAYABLE SUPERVISOR Office Visit [facility] Dermatology [address] [place] [address] [address] [place] [address] Ricardo Morales MD Basal cell carcinoma (BCC) of left protestant region (Primary Dx); Nail disorder; Lentigo; Seborrheic [...] 07/30/2023 Assessment & Plan (07/30/2023 1:06 PM ACCOUNTS PAYABLE SUPERVISOR): Would advise continuing topical anti-fungal Return to Derm Inguinal hernia 03/29/2020 Overview (03/29/2020): Added automatically from request for surgery [id number] Disorder of rotator cuff 03/23/2020 Ganglion cyst 03/23/2020 Resolved Problems Problem Noted Date Diagnosed Date Resolved Date Encounter for screening colonoscopy 09/29/2020 07/30/2023 Overview (09/29/2020): Added automatically from request for surgery [id number] Sinusitis 03/23/2020 07/30/2023 Immunizations Immunization Administration Dates [...] on file Legal Sex Male 6:22 PM ACCOUNTS PAYABLE SUPERVISOR Gender Identity Not on file Sexual Orientation Straight 06/23/2020 9: 19 PM ACCOUNTS PAYABLE SUPERVISOR Occupation Industry Job Start Date Job End Date retired Not on file Not on file Not on file Last Filed Vital Signs Vital Sign Reading Time Taken Comments Blood Pressure 123/66 12/24/2023 2:39 PM CDT Pulse 65 12/24/2023 2:39 PM CDT Temperature 36.5 C (97.7 F) 02/16/2021 8:33 AM CDT Respiratory Rate 17 02/16/2021 8:53 AM CDT Oxygen Saturation 98% 07/30/2023 12:47 PM ACCOUNTS PAYABLE SUPERVISOR Inhaled Oxygen Concentration - - Weight 86.2 kg (190 lb) 12/24/2023 2:39 PM CDT Height 177.8 cm (5' 10 ) 12/24/2023 2:39 PM CDT Body Mass Index 27.26 12/24/2023 2:39 PM CDT Plan of Treatment Not on file Medical Devices Implanted Type Area Twisthand Device Identifier Shelf Expiration Date Model / Serial / Lot [employer]/C R Bard [id number] Bard 3dmax 6.2x4.1in Monofilament Seal Edge Lightweight Pore Knit Latex Free - Sn/A - [id number] Implanted:Qty: 1 on 04/27/2020 by Alethea Isabel MD at [facility] Medicine Mesh Left: Other - see comments [employer] Bard 08/04/2024 [id number] / N/A / Description:Left inguinal Procedures Procedure [...] hyperlipidemia Routine general medical examination at a [facility] care facility Vitamin D deficiency Encounter for hepatitis C screening test for low risk patient Need for hepatitis B screening test COLONOSCOPY 02/16/2021 8:05 AM CDT from Last 3 Months or Most Recently Relevant to Health Maintenance Results * PSA screen (12/24/2023 3:35 PM CDT) PSA 3.0 0.0 - 4.0 ng/mL [facility] - 01 Comment: Lissett ECLIA methodology. According to the [place] [employer], Serum PSA should decrease and [...] - 12/25/2023 12:11 PM CDT Performed at: [facility] [id number] Entertainment Usher: Ming Julian PhD, Phone: [phone] us Gucci Nixon MD LAB BLOOD ORDERABLES Final Re sult Performing Organization Address City/[facility] Co de Phone Number [facility] - 01 * Hepatitis C [...] - 12/25/2023 12:11 PM CDT Performed at: [address] [place] [id number] Entertainment Usher: Ming Julian PhD, Phone: [phone] Gucci Nixon MD LAB MICROBIOLOGY - GENERAL OR DERABLES Final Result Performing Organization Address [facility] Co de Phone Number [facility] - 01 * COLONOSCOPY (02/16/2021 8:05 AM CDT) Anatomical Region Laterality Modality Other Narrative Procedure Note Latonya Gaona MD - 02/16/2021 8:05 AM CDT [facility] Patient Name: Robb Hughes Procedure Date: 02/16/2021 8:05 AM Date of : 1955 Admit Type: Outpatient Age: 65 Gender: Male Attending MD: Latonya Gaona M.D. Room: [facility] ENDOSCOPY ROOM 8 Note Status: Finalized [...] Monitored anesthesia care under the supervisionof a INDUSTRIAL MAINTENANCE MANAGER was determined to be medically necessary forthis [...] The scope was passed under direct vision.The [id number] endoscope was introduced through the anus and [...] On: 02/16/2021 8:05 AM Recognized by the [place] [employer] for Gastrointestinal Endoscopy for promoting quality in endoscopy us Latonya Gaona MD ENDOSCOPY PROCEDURES [place] [facility] Result from Last 3 Months or Most Recently Relevant to Health Maintenance Insurance [facility] [employer] [id number] [place] [address] MEDICARE MEDICARE [facility] FEDERAL MEDICARE [facility] FEDERAL Advance Directives For more information, please contact: [phone] * Full Code (Latest Code Status on File) Date Activated Date Inactivated Comments 02/16/2021 7:50 AM 02/16/2021 1:12 PM * Full Code Date Activated Date Inactivated Comments 02/16/2021 7:23 AM 02/16/2021 7:50 AM * Full Code Date Activated Date Inactivated Comments 04/27/2020 10:06 AM 04/27/2020 3:34 PM Care Teams Creative Services Intern Relationship Specialty Start Date End Date Konzen, Gucci L., MD [address] [address] PCP - General 11/18/17 Gucci Nixon MD [address] [address] Referring Physician Internal Medicine 10/30/18
--- OUTSIDE RECORDS SUMMARY | 2024-08-29 18:28 | XMS_ITS | Continuity of Care Document ---
Author Organization [facility] Address [address] [place] [address] [place] [address] Phone Care Team Providers Care Sawmill Equipment Operator Name Role Phone Donavan Camara DO Unavailable Unavailable Advance Directives Directive Yes / No Effective Date File Name No Information Encounters Encounter Description Practice Location Reason(s) For Visit Diagnoses Date Provider Providers Copied on Encounter [facility], [address], [place], [place], [id number], [place] tel:[phone] [facility] No Information Jax Galvez. [address] [facility], [place], [address], [place]. tel:[phone] Referring Provider: Yang Mary, [address] [facility] [address], [place], [address]. tel:[phone] Family History Family Member Type Diagnosis Age [...]
--- NOTE | 2024-08-29 18:46 | ED.ABDPAIN ---
HPI - Abdominal Pain General Chief Complaint: Abdominal Pain Stated Complaint: ABD PAIN X1WK Time Seen by Provider: 08/29/24 17:57 History of Present Illness HPI narrative: 69-year-old otherwise healthy male presenting to the emergency department chief complaint of right-sided lower quadrant abdominal pain. Patient recently went to [place] and came back from vacation. He had gastroenteritis during his trip with several days of nauseousness and supposed norovirus. He has been constipated since his trip and had 1 bowel movement yesterday after 5 days. Has been taking MiraLax and prune juice. Endorses pain in the right lower quadrant his abdomen. No abdominal surgical history. No fever chills. No urinary complaints. No history of kidney stones. Was otherwise in his normal state of health. Denies any injury trauma, no recent hospital visits or medication changes. Related Data Allergies Allergy/AdvReac Type Severity Reaction Status Date / Time oxycodone Allergy Hallucinati Verified 08/29/24 15:56 ng Review of Systems Review of Systems: [facility] Social History Social History Smoking status: Never smoker Exam Narrative: GENERAL: [Well-appearing, well-nourished, and in no acute distress.] HEAD: [Normocephalic, atraumatic.] EYES: [PERRLA and EOMI.] ENT: Nares clear, no rhinorrhea or epistaxis. Mucous membranes moist. NECK: Supple. CHEST: [Clear to auscultation. No respiratory distress.] HEART: [Regular rate and rhythm]. No murmur heard. [Normal peripheral pulses.] ABDOMEN: [Soft, nondistended], focal tenderness in the right lower quadrant without any signs of peritonitis, [No rigidity or guarding] EXTREMITIES: Normal range of motion. [No edema.] SKIN: Warm, dry, no rash. NEURO: [No focal deficits]. Alert and oriented [x3.] PSYCH: [Normal mood and affect.] Course Vital Signs Vital signs: Vital Signs Temperature 36.8 C 08/29/24 15:51 Pulse Rate 68 08/29/24 15:51 Respiratory Rate 16 08/29/24 15:51 Blood Pressure 137/95 H 08/29/24 15:51 Pulse Oximetry 100 08/29/24 15:51 Oxygen Delivery Room Air 08/29/24 15:51 Temperature 36.8 C 08/29/24 15:51 Pulse Rate 68 08/29/24 15:51 Respiratory Rate 20 08/29/24 18:08 Blood Pressure 150/88 H 08/29/24 18:17 Pulse Oximetry 98 08/29/24 18:17 Oxygen Delivery Room Air 08/29/24 15:51 MDM - Abdominal Pain MDM Narrative Medical decision making narrative: 69-year-old otherwise healthy male presenting with a right lower quadrant abdominal pain, constipation and recent gastroenteritis with suspected norovirus while he was in [place] last week. Denies any fever chills. No urinary complaints. He is mildly hypertensive but otherwise is normal vital signs. Otherwise very well-appearing and not any acute distress. Has some reproducible pain with palpation was right lower quadrant but no signs of peritonitis. Suspicion presently is for potential constipation, gastroenteritis, possibility of appendicitis or other intra-abdominal process. Low likelihood pancreatitis or gallbladder issue. Will obtain laboratory studies including CBC, CMP, lipase, urinalysis and a CT scan with contrast for better delineation. He was given morphine Zofran and fluid bolus and re-evaluated. Workup shows no leukocytosis or anemia. Normal platelet count. Chemistry panel within normal limits, normal renal and hepatic function panel. Negative lipase pt urinalysis without infection. CT scan shows a dilated distal ileum with adynamic ileus and some stool burden. Inguinal hernia with fat, umbilical hernia with fat. Patient was re-evaluated with symptomatic improvement. We went over the imaging studies together and plan of care going forward for constipation regimen and prokinetic motility agents such as Reglan to help with his adynamic ileus likely secondary to his recent gastroenteritis and norovirus exposure. Patient will be sent home with Reglan and magnesium citrate as well as continued MiraLax therapy. He will follow up with his regular doctor and return with any new or worsening concerns. Patient's questions were answered he was safe for discharge. Medical Records Attestation: I reviewed the patient's medical records. Lab Data Attestation: I reviewed the patient's lab results. 08/29/24 18:55 08/29/24 18:55 Labs: Lab Results 08/29/24 Range/Units 18:55 WBC 9.2 (4.5-10.0) K/mm3 RBC 4.60 (4.6-6.20) M/mm3 Hgb 15.1 (14.0-18.0) g/dL Hct 44.0 (42.0-52.0) % MCV 95.7 (80-100) fl MCH 32.8 (26-34) pg MCHC 34.3 (32-36) g/dl RDW 12.6 (11.5-14.5) % Plt Count 266 (150-375) k/mm3 MPV 9.8 (7.4-10.4) fl Immature Gran % (Auto) 0.3 (0-0.5) % Neut % (Auto) 64.2 (45.5-73.1) % Lymph % (Auto) 27.5 (18.3-44.2) % Mclean % (Auto) 4.8 (2.6-8.5) % Eos % (Auto) 2.5 (0-4.4) % Baso % (Auto) 0.7 (0.2-1.2) % Lymph # (Auto) 2.54 (0.9-3.2) K/mm3 Mclean # (Auto) 0.4 (0.1-0.6) K/mm3 Eos # (Auto) 0.2 (0-0.3) K/mm3 Baso # (Auto) 0.1 (0.0-0.1) K/mm3 Abs Immat Gran (auto) 0.03 (0.00-0.031) K/mm3 Absolute Neuts (auto) 5.9 (1.3-6.7) K/mm3 Absolute Nucleated RBC 0.000 (0.0-0.012) K/mm3 Nucleated RBC % 0.0 (0.0-0.2) % Sodium 139 (137-145) mmol/L Potassium 3.5 (3.4-5.0) mmol/L Chloride 102 (98-107) mmol/L Carbon Dioxide 27 (22-30) mmol/L Anion Gap 10 (4-12) mmol/L BUN 8 L (9-20) mg/dL Creatinine 0.74 (0.7-1.3) mg/dL Estim Creat Clear Calc 87 ml/min Estimated GFR > 60 (59 - ) Glucose 153 H (65-110) mg/dL Calcium 9.3 (8.4-10.2) mg/dL Total Bilirubin 0.8 (0.2-1.3) mg/dL AST 40 (17-59) U/L ALT 56 H (6-50) U/L Alkaline Phosphatase 46 (38-126) U/L Total Protein 7.0 (6.3-8.2) g/dL Albumin 4.2 (3.5-5.1) g/dL Lipase 186 (23-300) U/L Urine Color Yellow (Yellow) Urine Appearance Clear (Clear) Urine pH 6.5 (5.0-9.0) Ur Specific [place] 1.005 (1.001-1.035) Urine Protein Negative (Negative) mg/dL Urine Glucose (UA) Negative (Negative) mg/dL Urine Ketones Negative (Negative) mg/dL Ur Blood (Man) Negative (Negative) Urine Nitrate Negative (Negative) Urine Bilirubin Negative (Negative) Urine Urobilinogen 0.2 (<2.0) mg/dL Leukocyte Esterase Rfl Negative (Negative) MUSTAPHA/UL Imaging Data Attestation: I personally reviewed and interpreted this imaging study as follows: My impression: Impressions Abdomen/Pelvis CT 08/29/24 19:46 IMPRESSION: 1. Dilated distal ileum, likely adynamic ileus versus distal impaction. 2. Right inguinal hernia containing fat. 3. Umbilical hernia containing fat. Radiologist's impression: ITS Impressions Abdomen/Pelvis CT 08/29/24 19:46 IMPRESSION: 1. Dilated distal ileum, likely adynamic ileus versus distal impaction. 2. Right inguinal hernia containing fat. 3. Umbilical hernia containing fat. Discharge Plan Discharge Clinical Impression: Adynamic ileus, Acute constipation, History of gastroenteritis Patient Disposition: Home, Self-Care Condition: Stable Instructions: Antibiotic Form, Ileus (ED) Additional Instructions: You have some stool burden in your distal ileum which is the small bowel, no blockage or obstruction but we need to treat this with some aggressive constipation regimen including prokinetic agent such as Reglan and magnesium citrate. Continue taking her MiraLax twice daily 17 g in 8oz glass of water. Should have relief after several treatments. Return with any new or worsening concerns such as inability to tolerate oral intake, persistent nausea vomiting, worsening pain or any development of fevers or any other concerns. Patient Language: Occitan Prescriptions: New metoclopramide HCl [Reglan] 10 mg tablet 10 mg PO Q6H PRN (Reason: nausea and vomiting) Qty: 20 0RF magnesium citrate Solution 300 ml PO ONCE Qty: 296 0RF Rx Instructions: as a single dose polyethylene glycol 3350 [Mix-In Laxative] 17 gram powder in packet 17 g PO BID Qty: 30 0RF No Action ofloxacin 0.3 % drops 5 drop EACH EAR BID 7 Days Qty: 5 0RF Follow-up/Referrals: Tiffani,Gucci Claire MD [Primary Care Provider] - Time of Disposition: 20:12
[2024-08-29] MEDS: LACTATED RINGERS 1,000 ML 999 ML IV CONT (18:58)
[2024-08-29] MEDS: ONDANSETRON INJ 4 MG/2 ML VIAL IV PUSH (18:59)
[2024-08-29] MEDS: MORPHINE SULFATE (*CRX) 4 MG/ML INJ IV PUSH (19:01)
[2024-08-29 19:03] LABS: Basophils Absolute Auto 0.1 K/mm3 (0.0-0.1); Basophils Percent Auto 0.7 % (0.2-1.2); Eosinophils Absolute Auto 0.2 K/mm3 (0-0.3); Eosinophils Percent Auto 2.5 % (0-4.4); Hemoglobin 15.1 g/dL (14.0-18.0); Immature Granulocyte Absolute 0.03 K/mm3 (0.00-0.031); Immature Granulocyte Percent A 0.3 % (0-0.5); Lymphocytes Absolute Auto 2.54 K/mm3 (0.9-3.2); Lymphocytes Percent Auto 27.5 % (18.3-44.2); Mean Corpuscular HGB Conc 34.3 g/dl (32-36); Mean Corpuscular Hemoglobin 32.8 pg (26-34); Mean Corpuscular Volume 95.7 fl (80-100); Mean Platelet Volume 9.8 fl (7.4-10.4); Monocytes Absolute Auto 0.4 K/mm3 (0.1-0.6); Monocytes Percent Auto 4.8 % (2.6-8.5); Neutrophils Absolute Auto 5.9 K/mm3 (1.3-6.7); Neutrophils Percent Auto 64.2 % (45.5-73.1); Platelet Count Result 266 k/mm3 (150-375); Red Cell Distribution Width 12.6 % (11.5-14.5); White Blood Count 9.2 K/mm3 (4.5-10.0)
[2024-08-29 19:05] LABS: Add Urine Microscopic? NO; Appearance Urine Clear (Clear); Bilirubin Urine Negative (Negative); Blood Urine Negative (Negative); Color Urine Yellow (Yellow); Glucose Urine UA Negative (Negative); Ketones Urine Negative (Negative); Leukocyte Esterase Ur Negative LEU/UL (Negative); Nitrate Urine Negative (Negative); Protein Urine Negative (Negative); Specific Grav Ur 1.005 (1.001-1.035); Urobilinogen Urine 0.2 mg/dL (<2.0); pH Urine 6.5 (5.0-9.0)
[2024-08-29 19:16] LABS: Alanine Aminotransferase 56 U/L (6-50); Albumin Level 4.2 g/dL (3.5-5.1); Alkaline Phosphatase 46 U/L (38-126); Anion Gap 10 mmol/L (4-12); Aspartate Amino Transferase 40 U/L (17-59); Bilirubin,Total 0.8 mg/dL (0.2-1.3); Blood Urea Nitrogen 8 mg/dL (9-20); Calcium 9.3 mg/dL (8.4-10.2); Carbon Dioxide 27 mmol/L (22-30); Chloride 102 mmol/L (98-107); Estimated CRCL calculation 87 ml/min; Estimated Glomerular Filt Rate > 60; Glucose 153 mg/dL (65-110); Lipase 186 U/L (23-300); Potassium 3.5 mmol/L (3.4-5.0); Sodium 139 mmol/L (137-145)
[2024-08-29] MEDS: METOCLOPRAMIDE HCL INJ 10 MG/2 ML VIAL IV PUSH (20:31)
[2024-08-29] MEDS: MAGNESIUM CITRATE 300 ML BTL PO (20:33)
== END 2024-08-29 20:50 | disposition home or self-care (01) ==
PROVIDERS: Emergency Provider Student in an Organized Health Care Education/Training Program; PCP Internal Medicine
DX: K56.0 Paralytic ileus (principal); K59.00 Constipation, unspecified; K40.90 Unilateral inguinal hernia, without obstruction or gangrene, not specified as recurrent; K42.9 Umbilical hernia without obstruction or gangrene
CPT/HCPCS: 36415; 74177; 80053; 81003; 83690; 85025; 96361; 96374; 96375; 99284; A9270; J2270; J2405; J2765; J7120; Q9967